=== PATIENT | male | born 1960 | race African-American/Black ===

== ENCOUNTER 2016-07-11 03:50 | Inpatient (IN) | payer MEDICARE ==
[2016-07-11] MEDS ORDERED: ALBUTEROL 0.083% 3 ML NEB NEB ONE ×3 (03:54→04:50)
[2016-07-11 04:04] LABS: ALLEN'S TEST PASS; BEb -2.8 (+/- 2); TCO2 25.6 MMOL/L (23-27)
[2016-07-11 04:05] LABS: ABG Draw Site Right Brachial
[2016-07-11] MEDS ORDERED: LORAZEPAM 2 MG/ML VIAL IV ONE (04:30)
[2016-07-11 04:33] LABS: AUTOMATED BASOPHIL 0.4 % (0-2); AUTOMATED EOSINOPHIL 0.4 % (0-5); AUTOMATED LYMPH 10.1 % (17-44); AUTOMATED MONOCYTE 6.8 % (3-10); AUTOMATED NEUTROPHIL 82.3 % (45-76); MPV 7.8 fL (7.4-10.4)
--- NOTE | 2016-07-11 04:40 | EDPRACDOC ---
- General Information Stated Complaint: RESPIRATORY DISTRESS Time Seen by Provider: 07/11/16 04:38 Information Source: Patient, Watermaster Mode Of Arrival: Ambulance Home Medications: Home Medications Warfarin Sodium [Coumadin] 5 mg PO DIR 07/11/16 Warfarin Sodium [Coumadin] 6 mg PO DIR 07/11/16 Allergies/Adverse Reactions: Allergies Allergy/AdvReac Type Severity Reaction Status Date / Time No Known Allergies Allergy Verified 07/11/16 04:46 - History of Present Illness Onset: today HPI: h/o COPD inc SOB tonight despite home medications. no F/C, no rash. no sick contacts. BIB EMS sats in the 70s, has IV Solumedrol and albuterol in route Shortness of Breath: Severe Relevant History: Reports: COPD Cough: Reports: Non-productive Ear Symptoms: Reports: None SOB Worsens with: Reports: Exertion SOB Improves with: Reports: Inhaler Recently treated infections:: Denies: URI Associated Signs and symptoms: Denies: Fever, Sore Throat ED Past Medical History - History Reviewed Yes Nurses notes reviewed and agree except as marked - Patient Medical History Cardiac History: Reports: Hypertension Respiratory History: Denies: Asthma, COPD Psychological History: Reports: Depression Systemic History: Reports: Cancer (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 Denies: Diabetes Surgical History: Reports: Tonsillectomy/Adnoidectomy - Family Medical History Reports: Hypertension (MOTHER), Cancer (SISTER). Denies: Diabetes, Stroke, Cardiac Disorders EDM Review of Systems - Review of Systems ROS Negative Except as Marked: Yes All systems reviewed and were negative except as marked - Physical Exam Constitutional: Alert (Awake), Other (resp distress) Oriented to: Time, Person, Place Last recorded Vital Signs: Last Vital Signs Temp Pulse Resp 17 07/11/16 03:58 BP Pulse Ox 96 07/11/16 03:58 Oxygen Pulse Oxygen Saturation 96 O2 Device Oxygen Flow Rate Fraction of Inspired Oxygen ( 30 FIO2) - HEENT Head: Normal ( normocephalic) Eye Exam: Normal (PERRL, EOMI, Sclera white) Oropharynx: Normal (Pharynx:Moist without exudate,Gums-no swelling) Nose: No Symptoms Reported (septum midline) Neck: Normal (FROM, trachea at midline) - Respiratory/Cardiovascular Respiratory: Diminished, Tachypnea Cardiovascular: Tachycardia - GI Auscultation: Normal (NABS) Palpation: Normal (Soft,No rebound or guarding, non distended) Tenderness: Non tender - Musculoskeletal Back: Normal (Non-Tender) Extremities: Normal (Normal tone, Pulses 2+ No cyanosis or edema, FROM) - Integumentary Skin: Normal, Warm, Dry Lymphatics: Normal (no adenopathy) - Neurologic Memory Impaired: Normal Motor Function: Normal (Normal tone, Pulses 2+ No cyanosis or edema, FROM) Cranial Nerve: Normal (CN II-X11 intact sensation, strength 5/5) Cerebellar: Normal Mood Description: Normal Perception: Normal ED SOB MDM - Differential Diagnosis Differential Diagnosis: Asthma, Pulmonary Embolus, Pnuemonia - Results Result Diagrams: 07/11/16 04:15 07/11/16 04:35 Results: WBC 10.2 xk/uL (3.8-10.8) 07/11/16 04:15 RBC 5.37 xM/uL (4.70-6.10) 07/11/16 04:15 Hgb 17.2 g/dL (14.0-18.0) 07/11/16 04:15 Hct 51.3 % (42-52) 07/11/16 04:15 MCV 96 fL (80-94) H 07/11/16 04:15 MCH 32.0 pg (27-32) 07/11/16 04:15 MCHC 33.4 g/dl (33-36) 07/11/16 04:15 RDW 14.8 % (11.5-14.5) H 07/11/16 04:15 Plt Count 143 xk/uL (130-400) 07/11/16 04:15 MPV 7.8 fL (7.4-10.4) 07/11/16 04:15 Neut % (Auto) 82.3 % (45-76) H 07/11/16 04:15 Lymph % (Auto) 10.1 % (17-44) L 07/11/16 04:15 [place] % (Auto) 6.8 % (3-10) 07/11/16 04:15 Eos % (Auto) 0.4 % (0-5) 07/11/16 04:15 Baso % (Auto) 0.4 % (0-2) 07/11/16 04:15 Absolute Neuts (auto) 8.36 xk/uL (1.7-8.2) H 07/11/16 04:15 Absolute Lymphs (auto) 1.02 xk/uL (0.65-4.75) 07/11/16 04:15 Puncture Site Right brachial 07/11/16 04:00 pH 7.300 pH UNITS (7.35-7.45) L 07/11/16 04:00 pCO2 49.0 mmHg (35-45) H 07/11/16 04:00 pO2 60.0 mmHg (80-100) L 07/11/16 04:00 HCO3 24.1 MMOL/L (22-26) 07/11/16 04:00 Total CO2 25.6 MMOL/L (23-27) 07/11/16 04:00 Base Excess -2.8 (+/- 2) L 07/11/16 04:00 FiO2 % 2l nc 07/11/16 04:00 Specimen Drawn By Nelson 07/11/16 04:00 Lab Results 07/11/16 07/11/16 04:15 04:00 WBC 10.2 RBC 5.37 Hgb 17.2 Hct 51.3 MCV 96 H MCH 32.0 MCHC 33.4 RDW 14.8 H Plt Count 143 MPV 7.8 Neut % (Auto) 82.3 H Lymph % (Auto) 10.1 L [place] % (Auto) 6.8 Eos % (Auto) 0.4 Baso % (Auto) 0.4 Absolute Neuts (auto) 8.36 H Absolute Lymphs (auto) 1.02 Puncture Site Right brachial pH 7.300 L pCO2 49.0 H pO2 60.0 L HCO3 24.1 Total CO2 25.6 Base Excess -2.8 L FiO2 % 2l nc Specimen Drawn By Nelson - EKG EKG #1 EKG Time: 03:56 -: Yes EKG interpreted by ca Rate: bpm: 103 [place]: Normal Rhythm: ST Block: None Hypertrophy: None ST: Nonsp Comments: old septal infarct, PVCs present - Diagnostic Imaging Chest Image interpreted by: Radiologist Diagnostic Imaging Comments: Exam(s): [id number] RAD/DG CHEST PORTABLE CLINICAL DATA: 56-year-old male with shortness of breath EXAM: PORTABLE CHEST 1 VIEW COMPARISON: Chest CT dated 05/08/2016 FINDINGS: There is severe emphysematous changes of the lungs. No focal consolidation or or pneumothorax. There is slight blunting of the costophrenic angles, likely related to flattening of the diaphragm. Trace pleural effusions is not excluded. Right pectoral Port-A-Cath with tip over central SVC. A gas containing structure at the right cardiophrenic angle corresponds to the air with gastric pull-through. The osseous structures are grossly unremarkable. IMPRESSION: No focal consolidation or pneumothorax. Electronically Signed By: Thomas Heaton M.D. On: 07/11/2016 04:49 - Departure Final Diagnosis: Acute exacerbation of chronic obstructive airways disease Decision to Admit Time: 05:49 Decision to admit date: 07/11/16 Decision to admit: from ED - Physician Consulted Hospitalist Time Called: 05:49 (Dr Stanton to admit)
--- NOTE | 2016-07-11 04:52 | DIRPT ---
CLINICAL DATA: 56-year-old male with shortness of breath EXAM: PORTABLE CHEST 1 VIEW COMPARISON: Chest CT dated 05/08/2016 FINDINGS: There is severe emphysematous changes of the lungs. No focal consolidation or or pneumothorax. There is slight blunting of the costophrenic angles, likely related to flattening of the diaphragm. Trace pleural effusions is not excluded. Right pectoral Port-A-Cath with tip over central SVC. A gas containing structure at the right cardiophrenic angle corresponds to the air with gastric pull-through. The osseous structures are grossly unremarkable. IMPRESSION: No focal consolidation or pneumothorax. Electronically Signed By: Thomas Heaton M.D. On: 07/11/2016 04:49
[2016-07-11 04:55] LABS: BLOOD UREA NITROGEN 10 MG/DL (9-20); CALCIUM 8.9 MG/DL (8.4-10.2); CALCULATED OSMOLALITY 264 MOs/Kg (270-290); CHLORIDE 99 mEq/L (98-107); GLUCOSE 125 MG/DL (70-99); SODIUM LEVEL 137 mEq/L (137-146)
[2016-07-11 05:51] LABS: PT-INR 1.5
[2016-07-11] MEDS ORDERED: Albuterol/Ipratropium Neb 3 ML NEB NEB PRN (06:06)
[2016-07-11] MEDS ORDERED: DEXTROSE 25 GM/50 ML PFS IV PRN (06:06)
[2016-07-11] MEDS ORDERED: GLUCOSE (ORAL GEL) 15 GM TUBE PO PRN (06:06)
[2016-07-11] MEDS ORDERED: GLUCAGON 1 MG VIAL SQ PRN (06:06)
[2016-07-11] MEDS ORDERED: FLEET 4.5 OZ ENEMA PR PRN (06:42)
[2016-07-11] MEDS ORDERED: BISACODYL 10 MG SUPP PR PRN (06:42)
[2016-07-11] MEDS ORDERED: PROMETHAZINE 25 MG/ML VIAL IV PRN (06:42)
[2016-07-11] MEDS ORDERED: GUAIFENESIN 200 MG/10 ML UDC PO PRN (06:42)
[2016-07-11] MEDS ORDERED: ONDANSETRON HCL 4 MG/2 ML VIAL IV PRN (06:42)
[2016-07-11] MEDS ORDERED: SIMETHICONE 80 MG TAB PO PRN (06:42)
[2016-07-11] MEDS ORDERED: BISACODYL 5 MG TAB PO PRN (06:42)
--- NOTE | 2016-07-11 06:46 | HISTPHYS ---
- Chief Complaint Shortness of breath - History of Present Illness 56 yoaam presented emergency room early on today for evaluation of progressive worsening difficulties breathing. Patient reports that about 10 days ago he has developed chest congestion and cough associated with the pleuritic chest pain it was seen by his PCP and received course of antibiotic. His symptoms have only minimally improved. Since finishing antibiotic he has developed progressive worsening dyspnea chest tightness wheezes and cough productive thick yellowish greenish phlegm denies any hemoptysis. Despite using his oxygen at higher flow patient did not sustain asymptomatic improvement and yesterday evening he has found himself gasping for air. His pulse ox was in the low 70s when EMS arrived.. Upon arrival in ED patient was found to be in severe respiratory distress hypoxic tachypneic tachycardic and hypertensive and required immediate ED staff attention and BiPAP therapy. He received IV steroids and nebulized bronchodilators, intubation was avoided. Medical consultation was phoned in for inpatient treatment. - Medical History Cardiac History: Reports: Hypertension, Valvular Heart Disease Respiratory History: Reports: COPD, Pneumonia, Emphysema, Pulmonary Embolism. Denies: Asthma GI/ History: Reports: Gastroesophageal Reflux, BPH Musculoskeletal History: Reports: Osteoarthritis Systemic History: Reports: Cancer (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 Denies: Diabetes Neurological History: Reports: No Significant History Psychological History: Reports: Depression - Surgical History Reports: Tonsillectomy/Adnoidectomy, Other (port) - Medictions/Allergies Allergies No Known Allergies Allergy (Verified 07/11/16 04:46) Current Medication List: Reviewed Home Medications Warfarin Sodium [Coumadin] 5 mg PO DIR 07/11/16 Warfarin Sodium [Coumadin] 6 mg PO DIR 07/11/16 - Family History Reports: Hypertension (MOTHER), Cancer (SISTER). Denies: Diabetes, Stroke, Cardiac Disorders - Social History Travel Outside of [place] in the Last 3 Months?: No Lives: With Family Smoking Status: Light tobacco smoker (less than 5/day) - Review of Systems Constitutional: Chills, Fever, Diaphoresis, Fatigue, Loss of Appetite, Weakness Eyes: No Symptoms Reported Ears: No Symptoms Reported Nose: No Symptoms Reported Mouth: No Symptoms Reported Throat/Neck: No Symptoms Reported Respiratory: Cough, Shortness of Breath, Wheezing, Sputum, Dyspnea Cardiovascular: Chest Pain Gastrointestinal: No Symptoms Reported, Nausea, Heartburn Genitourinary: Nocturia Neurological: Weakness Musculoskeletal:: Arthritis Integumentary: No Symptoms Reported Allergic/Immunologic: No Symptoms Reported Hematologic: No Symptoms Reported Endocrine: No Symptoms Reported Psychiatric: No Symptoms Reported - Physical Exam Vital Signs: Initial Vitals Temperature 98.4 F 07/11/16 03:50 Pulse Rate 102 07/11/16 03:50 Respiratory Rate 25 H 07/11/16 03:50 Blood Pressure 199/117 H 07/11/16 03:50 Pulse Oxygen Saturation 79 L 07/11/16 03:50 Constitutional: Distress, Restless, Other (Acutely ill and toxic-appearing visibly short of breath with audible wheezes and rhonchi . Unable to speak full sentences) Oriented to: Time, Person, Place - HEENT Head: Normal Eye: Normal Oropharynx: Normal ENT EAC: Normal TMJ: Normal Nose: No Symptoms Reported Respiratory: Accessory Muscle Use, Diminished, Retractions, Rhonchi, Tachypnea, Wheezes Cardiovascular: Normal, Tachycardia - GI Auscultation: Normal Palpation: Normal Tenderness: Non tender Rectal Exam: Deferred - Exam Deferred: Yes - Musculoskeletal Back: Normal Extremities: Normal Spine: limited range of motion - Integumentary Skin: Normal, Warm, Dry Lymphatics: Normal - Neurologic Memory Impaired: Normal Motor Function: Normal Cranial Nerve: Normal Cerebellar: Normal Mood Description: Normal, Anxious Thought: Coherent Perception: Normal - Focused CV Perfusion Exam Vital Signs: Last Vital Signs Temp 98.4 F 07/11/16 03:50 Pulse 120 H 07/11/16 05:15 Resp 29 H 07/11/16 05:15 BP 170/92 07/11/16 05:15 Pulse Ox 95 07/11/16 04:30 - Diagnostic Findings Allergies No Known Allergies Allergy (Verified 07/11/16 04:46) Initial Vitals Temperature 98.4 F 07/11/16 03:50 Pulse Rate 102 07/11/16 03:50 Respiratory Rate 25 H 07/11/16 03:50 Blood Pressure 199/117 H 07/11/16 03:50 Pulse Oxygen Saturation 79 L 07/11/16 03:50 07/11/16 04:15 07/11/16 04:35 Abnormal Lab Results 07/11/16 07/11/16 07/11/16 04:00 04:15 04:18 MCV 96 H RDW 14.8 H Neut % (Auto) 82.3 H Lymph % (Auto) 10.1 L Absolute Neuts (auto) 8.36 H PT 15.8 H pH 7.300 L pCO2 49.0 H pO2 60.0 L Base Excess -2.8 L Anion Gap Glucose Calculated Osmolality 07/11/16 04:35 MCV RDW Neut % (Auto) Lymph % (Auto) Absolute Neuts (auto) PT pH pCO2 pO2 Base Excess Anion Gap 18 H Glucose 125 H Calculated Osmolality 264 L Last Vital Signs Temp 98.4 F 07/11/16 03:50 Pulse 120 H 07/11/16 05:15 Resp 29 H 07/11/16 05:15 BP 170/92 07/11/16 05:15 Pulse Ox 95 07/11/16 04:30 Patient Name: WINNIE GUERRA JR LOC: ED : 1960 AGE: 56 Order Date:07/11/16 Date of Service:04/17 Report # [id number] Ord Physician: Bryon Carmen MD Exam # [id number] Emergency Physician: Bryon Carmen MD Exam(s): [id number] RAD/DG CHEST PORTABLE CLINICAL DATA: 56-year-old male with shortness of breath EXAM: PORTABLE CHEST 1 VIEW COMPARISON: Chest CT dated 05/08/2016 FINDINGS: There is severe emphysematous changes of the lungs. No focal consolidation or or pneumothorax. There is slight blunting of the costophrenic angles, likely related to flattening of the diaphragm. Trace pleural effusions is not excluded. Right pectoral Port-A-Cath with tip over central SVC. A gas containing structure at the right cardiophrenic angle corresponds to the air with gastric pull-through. The osseous structures are grossly unremarkable. IMPRESSION: No focal consolidation or pneumothorax. Electronically Signed By: Thomas Heaton M.D. On: 07/11/2016 04:49 EKG: sinus tach, pvcs - Assessment (1) Acute respiratory failure with hypoxia J96.01 - ACUTE RESPIRATORY FAILURE WITH HYPOXIA Acute Present on Admission: Yes Patient will be admitted to step-down unit. Supplemental O2 will be provided will keep his sats greater than 90%. Monitor pulmonary status closely PA lateral chest x-ray and ABG will be obtained the morning. (2) Acute exacerbation of chronic obstructive airways disease J44.1 - CHRONIC OBSTRUCTIVE PULMONARY DISEASE W (ACUTE) EXACERBATION Acute Present on Admission: Yes Continue nebulized bronchodilators continue IV steroids. Continue mucolytics and aggressive pulmonary toileting. (3) Accelerated hypertension I10 - ESSENTIAL (PRIMARY) HYPERTENSION Acute Present on Admission: Yes Adjust meds to keep SBP less than 140. (4) Pulmonary embolism I26.99 - OTHER PULMONARY EMBOLISM WITHOUT ACUTE COR PULMONALE Chronic Present on Admission: Yes Qualifiers: Pulmonary embolism type: other Chronicity: chronic Acute cor pulmonale presence: without acute cor pulmonale Qualified Code(s): I27.82 - Chronic pulmonary embolism Continue Coumadin for INR between 2 and 3 (5) GERD (gastroesophageal reflux disease) K21.9 - GASTRO-ESOPHAGEAL REFLUX DISEASE WITHOUT ESOPHAGITIS Chronic Present on Admission: Yes Qualifiers: Esophagitis presence: without esophagitis Qualified Code(s): K21.9 - Gastro -esophageal reflux disease without esophagitis continue ppi (6) H/O malignant neoplasm of esophagus Z85.01 - PERSONAL HISTORY OF MALIGNANT NEOPLASM OF ESOPHAGUS Chronic Present on Admission: Yes Status post treatment. Port in place. Follow by Heme-Onc. (7) Dehydration E86.0 - DEHYDRATION Acute Present on Admission: Yes Continue IV fluids. Case Care Discussed with: Patient, Nursing Staff, Respiratory Therapy Total Time: 65 min . Critical Care: Yes Code: 291
[2016-07-11] MEDS ORDERED: WARFARIN EDUCATION DOCUMENTATION ONE (07:00)
[2016-07-11] MEDS: NS 1,000 ML IV SCH ×2 (09:04→21:26)
[2016-07-11] MEDS: CEFTRIAXONE 1 GM in D5W 100 ML IV SCH (09:05)
[2016-07-11] MEDS: GUAIFENESIN 600 MG LA TAB PO SCH ×2 (09:12→21:26)
[2016-07-11] MEDS: METHYLPREDNISOLONE 125 MG/2 ML VIAL IV SCH ×3 (09:12→21:26)
[2016-07-11] MEDS: LISINOPRIL 20 MG TAB PO SCH (09:13)
[2016-07-11] MEDS: AZITHROMYCIN 500 MG in D5W 250 ML IV SCH (09:14)
[2016-07-11] MEDS: Albuterol/Ipratropium Neb 3 ML NEB NEB SCH ×3 (09:29→20:47)
[2016-07-11] MEDS: BUDESONIDE 0.5 MG NEB NEB SCH ×2 (09:29→20:50)
[2016-07-11] MEDS: hydrALAZINE 20 MG/ML VIAL IV PRN (10:30)
[2016-07-11] MEDS: LORAZEPAM 1 MG TAB PO PRN ×3 (11:03→21:26)
[2016-07-11] MEDS: REGULAR INSULIN 100 UNITS/ML - 3 ML VIAL SQ SCH ×3 (13:38→23:41)
[2016-07-11] MEDS: ENOXAPARIN 80 MG/0.8 ML PFS SQ SCH ×2 (13:39→23:41)
[2016-07-11] MEDS ORDERED: ACETAMINOPHEN 325 MG/TAB TABLET PO PRN (16:08)
[2016-07-11] MEDS: This patient is receiving warfarin therapy SCH (18:37)
[2016-07-11] MEDS: WARFARIN 6 MG TAB PO SCH (19:16)
[2016-07-12] MEDS: Albuterol/Ipratropium Neb 3 ML NEB NEB SCH ×4 (02:15→20:00)
[2016-07-12] MEDS: METHYLPREDNISOLONE 125 MG/2 ML VIAL IV SCH ×4 (03:02→19:45)
[2016-07-12 05:27] LABS: AUTOMATED BASOPHIL 0.2 % (0-2); AUTOMATED EOSINOPHIL 0.1 % (0-5); AUTOMATED LYMPH 7.3 % (17-44); AUTOMATED MONOCYTE 4.8 % (3-10); AUTOMATED NEUTROPHIL 87.6 % (45-76); MPV 8.1 fL (7.4-10.4)
[2016-07-12 05:30] LABS: ALLEN'S TEST PASS; BEb 0.3 (+/- 2); TCO2 25.8 MMOL/L (23-27)
[2016-07-12 05:31] LABS: ABG Draw Site Left Radial
[2016-07-12 05:33] LABS: PT-INR 2.2
[2016-07-12 05:39] LABS: BLOOD UREA NITROGEN 16 MG/DL (9-20); CALCIUM 9.3 MG/DL (8.4-10.2); CALCULATED OSMOLALITY 268 MOs/Kg (270-290); CHLORIDE 99 mEq/L (98-107); GLUCOSE 150 MG/DL (70-99); SODIUM LEVEL 137 mEq/L (137-146)
[2016-07-12] MEDS: NS 1,000 ML IV SCH ×2 (06:21→17:43)
[2016-07-12] MEDS: REGULAR INSULIN 100 UNITS/ML - 3 ML VIAL SQ SCH ×4 (06:22→23:40)
[2016-07-12] MEDS: PANTOPRAZOLE 40 MG TAB PO SCH (06:22)
[2016-07-12] MEDS: CEFTRIAXONE 1 GM in D5W 100 ML IV SCH (07:34)
[2016-07-12] MEDS: GUAIFENESIN 600 MG LA TAB PO SCH ×2 (07:35→19:46)
[2016-07-12] MEDS: LISINOPRIL 20 MG TAB PO SCH (07:35)
--- NOTE | 2016-07-12 08:17 | DIRPT ---
CLINICAL DATA: Respiratory failure. Shortness of breath EXAM: CHEST 2 VIEW COMPARISON: 07/11/2016 FINDINGS: Right chest wall port a catheter noted with tip in the projection of the SVC. Heart size is normal. Postoperative change from previous esophagectomy and gastric pull through. Fluid level is identified within the intra thoracic stomach. The lungs are hyperexpanded. There are coarsened interstitial markings throughout both lungs compatible with emphysema. No superimposed airspace consolidation. IMPRESSION: 1. No acute cardiopulmonary abnormalities. 2. COPD/emphysema Electronically Signed By: Miroslava Samayoa M.D. On: 07/12/2016 08:15
[2016-07-12] MEDS: BUDESONIDE 0.5 MG NEB NEB SCH ×2 (09:31→20:00)
[2016-07-12] MEDS: AZITHROMYCIN 500 MG in D5W 250 ML IV SCH (09:49)
--- NOTE | 2016-07-12 10:07 | GENMEDPROG ---
Chief Complaint: Pneumonia, COPD Subjective Note: Resting comfortably this morning on 2 L nasal cannula. Currently getting a breathing treatment. Tells me that he feels overall improved, but with any exertion he gets very short of breath. No productive sputum anymore. DVT Prophylaxis: Yes - Physical Examination Vital Signs and I&O: Last Vital Signs Temp 97.8 F 07/12/16 05:36 Pulse 116 07/12/16 10:00 Resp 18 07/12/16 07:17 BP 128/81 07/12/16 07:17 Pulse Ox 93 07/12/16 09:32 Oxygen Pulse Oxygen Saturation 93 O2 Device Nasal Cannula Oxygen Flow Rate 2 Fraction of Inspired Oxygen ( FIO2) Intake & Output 07/10/16 07/11/16 07/12/16 07/13/16 06:59 06:59 06:59 06:59 Intake Total 0 1065 Output Total 1405 Balance 0 -340 Patient's weight 75.466 kg General: Alert, Oriented x3, Cooperative, Mild distress HEENT: EOMI (Sclera white) Neck: Normal Trachea alignment, Normal inspection Lymphatics: Normal Respiratory: Accessory Muscle Use, Diminished, Retractions, Rhonchi, Tachypnea, Wheezes Cardiovascular: Regular rate, No Gallops,Rubs/Murmurs GI: Normal bowel sounds, Soft, Non tender (non distended) Extremities/Musculoskeletal: Other (Normal Tone). negative: Edema, Cyanosis Skin: No rashes, No significant lesion Lab/DI/Studies Reviewed: Laboratory Tests 07/12/16 07/12/16 07/12/16 04:15 04:15 04:15 Hgb 17.4 Hct 52.3 H INR 2.2 pH pCO2 pO2 Potassium 4.5 BUN 16 Creatinine 0.80 07/12/16 05:28 Hgb Hct INR pH 7.420 pCO2 38.0 pO2 60.0 L Potassium BUN Creatinine - Assessment (1) Accelerated hypertension Acute I10 - ESSENTIAL (PRIMARY) HYPERTENSION Comment/Plan: Adjust meds to keep SBP less than 140. (2) Acute exacerbation of chronic obstructive airways disease Acute J44.1 - CHRONIC OBSTRUCTIVE PULMONARY DISEASE W (ACUTE) EXACERBATION Comment/Plan: Continue nebulized bronchodilators continue IV steroids, still wheezing but will wean steroids down slightly today. Continue mucolytics and aggressive pulmonary toileting. (3) Acute respiratory failure with hypoxia Acute J96.01 - ACUTE RESPIRATORY FAILURE WITH HYPOXIA Comment/Plan: Patient will be admitted to step-down unit. Supplemental O2 will be provided will keep his sats greater than 90%. Monitor pulmonary status closely PA lateral chest x- ray and ABG will be obtained the morning. (4) GERD (gastroesophageal reflux disease) Chronic K21.9 - GASTRO-ESOPHAGEAL REFLUX DISEASE WITHOUT ESOPHAGITIS Qualifiers: Esophagitis presence: without esophagitis Qualified Code(s): K21.9 - Gastro -esophageal reflux disease without esophagitis Comment/Plan: continue ppi (5) H/O malignant neoplasm of esophagus Chronic Z85.01 - PERSONAL HISTORY OF MALIGNANT NEOPLASM OF ESOPHAGUS Comment /Plan: Status post treatment. Port in place. Follow by Heme-Onc. (6) Pulmonary embolism Chronic I26.99 - OTHER PULMONARY EMBOLISM WITHOUT ACUTE COR PULMONALE Qualifiers: Pulmonary embolism type: other Chronicity: chronic Acute cor pulmonale presence: without acute cor pulmonale Qualified Code(s): I27.82 - Chronic pulmonary embolism Comment/Plan: Continue Coumadin for INR between 2 and 3, Lovenox was initiated yesterday due to his chronic PE. Can be discontinued today as INR is in therapeutic range. Case Care Discussed with: Patient, Nursing Staff Total Time: 35
[2016-07-12] MEDS ORDERED: Vaccine Screening Complete SCH (13:00)
[2016-07-12] MEDS: This patient is receiving warfarin therapy SCH (16:10)
[2016-07-12] MEDS: [UNRECOGNIZED DRUG - OTHER] PO SCH (16:46)
[2016-07-12] MEDS: WARFARIN 6 MG TAB PO SCH (17:39)
[2016-07-12] MEDS: LORAZEPAM 1 MG TAB PO PRN (23:29)
[2016-07-13] MEDS: Albuterol/Ipratropium Neb 3 ML NEB NEB SCH ×4 (02:20→20:52)
[2016-07-13] MEDS: METHYLPREDNISOLONE 125 MG/2 ML VIAL IV SCH ×4 (03:17→20:12)
[2016-07-13] MEDS: NS 1,000 ML IV SCH ×4 (03:19→14:46)
[2016-07-13] MEDS: PANTOPRAZOLE 40 MG TAB PO SCH (05:02)
[2016-07-13 05:46] LABS: PT-INR 3.5
[2016-07-13] MEDS: REGULAR INSULIN 100 UNITS/ML - 3 ML VIAL SQ SCH ×3 (06:09→17:19)
[2016-07-13] MEDS: CEFTRIAXONE 1 GM in D5W 100 ML IV SCH (07:17)
[2016-07-13] MEDS: LISINOPRIL 20 MG TAB PO SCH (07:17)
[2016-07-13] MEDS: GUAIFENESIN 600 MG LA TAB PO SCH ×2 (07:17→20:12)
[2016-07-13] MEDS: BUDESONIDE 0.5 MG NEB NEB SCH ×2 (07:59→20:53)
[2016-07-13] MEDS: AZITHROMYCIN 500 MG in D5W 250 ML IV SCH (08:13)
--- NOTE | 2016-07-13 08:30 | GENMEDPROG ---
Chief Complaint: PNEUMONIA, COPD EXAC, MALIG HTN, HX ESOPH CA, PE (OLD), GERD DVT Prophylaxis: Yes - Physical Examination Vital Signs and I&O: Last Vital Signs Temp 98.1 F 07/13/16 08:03 Pulse 101 07/13/16 08:03 Resp 18 07/13/16 08:03 BP 141/99 07/13/16 08:03 Pulse Ox 99 07/13/16 08:03 Oxygen Pulse Oxygen Saturation 99 O2 Device Nasal Cannula Oxygen Flow Rate 2 Fraction of Inspired Oxygen ( FIO2) Intake & Output 07/10/16 07/11/16 07/12/16 07/13/16 23:59 23:59 23:59 23:59 Intake Total 0 3203 1368 Output Total 905 3230 250 Balance -905 -27 1118 Patient's weight 75.466 kg 75.466 kg 76.26 kg General: Alert, Oriented x3, Cooperative, Mild distress HEENT: PERRLA, EOMI (Sclera white), Mucous membr. moist/pink Neck: Normal Trachea alignment, Normal inspection Lymphatics: Normal Respiratory: Accessory Muscle Use, Diminished, Retractions, Rhonchi, Tachypnea, Wheezes Cardiovascular: Regular rate, No Gallops,Rubs/Murmurs GI: Normal bowel sounds, Soft, Non tender (non distended) Extremities/Musculoskeletal: Normal pulses, DJD, Other (Normal Tone). negative : Edema, Cyanosis Skin: No rashes, No significant lesion Neurological: Normal speech, Strength at 5/5 X4 ext, Normal tone Psych/Mental Status: Appropriate, Normal Affect, Cooperative - Assessment (1) Acute respiratory failure with hypoxia Acute J96.01 - ACUTE RESPIRATORY FAILURE WITH HYPOXIA Comment/Plan: Patient will be admitted to step-down unit. Supplemental O2 will be provided will keep his sats greater than 90%. Monitor pulmonary status closely PA lateral chest x- ray and ABG will be obtained the morning. (2) Pneumonia Acute J18.9 - PNEUMONIA, UNSPECIFIED ORGANISM Qualifiers: Pneumonia type: due to unspecified organism Laterality: left Lung location: upper lobe of lung Qualified Code(s): J18.1 - Lobar pneumonia, unspecified organism Comment/Plan: continue current antibiotics: Rocephin & Zithromax (3) Acute exacerbation of chronic obstructive airways disease Acute J44.1 - CHRONIC OBSTRUCTIVE PULMONARY DISEASE W (ACUTE) EXACERBATION Comment/Plan: Continue nebulized bronchodilators continue IV steroids, still wheezing but will wean steroids down slightly today. Continue mucolytics and aggressive pulmonary toileting. (4) HTN (hypertension) Acute I10 - ESSENTIAL (PRIMARY) HYPERTENSION Qualifiers: Hypertension type: essential hypertension Qualified Code(s): I10 - Essential (primary) hypertension (5) GERD (gastroesophageal reflux disease) Chronic K21.9 - GASTRO-ESOPHAGEAL REFLUX DISEASE WITHOUT ESOPHAGITIS Qualifiers: Esophagitis presence: without esophagitis Qualified Code(s): K21.9 - Gastro -esophageal reflux disease without esophagitis Comment/Plan: continue PPI (6) H/O malignant neoplasm of esophagus Chronic Z85.01 - PERSONAL HISTORY OF MALIGNANT NEOPLASM OF ESOPHAGUS Comment /Plan: Status post treatment. Port in place. Followed by Heme-Onc. (7) Dehydration Resolved E86.0 - DEHYDRATION Comment/Plan: Continue IV fluids.
[2016-07-13] MEDS ORDERED: Medication Special Instructions SCH (14:00)
[2016-07-13] MEDS: [UNRECOGNIZED DRUG - OTHER] PO SCH (14:46)
[2016-07-13] MEDS: This patient is receiving warfarin therapy SCH (16:26)
[2016-07-13] MEDS: hydrALAZINE 20 MG/ML VIAL IV PRN (20:16)
[2016-07-13] MEDS: LORAZEPAM 1 MG TAB PO PRN (20:58)
[2016-07-14] MEDS: NS 1,000 ML IV SCH ×4 (01:05→21:40)
[2016-07-14] MEDS: REGULAR INSULIN 100 UNITS/ML - 3 ML VIAL SQ SCH ×4 (01:32→17:10)
[2016-07-14] MEDS: METHYLPREDNISOLONE 125 MG/2 ML VIAL IV SCH ×4 (02:09→20:37)
[2016-07-14] MEDS: Albuterol/Ipratropium Neb 3 ML NEB NEB SCH ×4 (02:18→20:13)
[2016-07-14 05:05] LABS: PT-INR 4.1
[2016-07-14] MEDS: PANTOPRAZOLE 40 MG TAB PO SCH (06:05)
[2016-07-14] MEDS: CEFTRIAXONE 1 GM in D5W 100 ML IV SCH (08:04)
[2016-07-14] MEDS: GUAIFENESIN 600 MG LA TAB PO SCH ×2 (08:04→20:37)
[2016-07-14] MEDS: LISINOPRIL 20 MG TAB PO SCH (08:04)
[2016-07-14] MEDS: BUDESONIDE 0.5 MG NEB NEB SCH ×2 (08:22→20:14)
[2016-07-14] MEDS: AZITHROMYCIN 250 MG TAB PO SCH (08:46)
[2016-07-14] MEDS: This patient is receiving warfarin therapy SCH (11:50)
[2016-07-14] MEDS: WARFARIN 6 MG TAB PO SCH ×2 (11:50→11:52)
[2016-07-14] MEDS: [UNRECOGNIZED DRUG - OTHER] PO SCH (14:03)
--- NOTE | 2016-07-14 16:17 | GENMEDPROG ---
Chief Complaint: resp failure, COPD, pneumonia, HTN, Subjective Note: Pleasant AA man still reports DEL CATSILLO Currently: Reports: DEL CASTILLO, SOB. Denies: Wheezing DVT Prophylaxis: Yes - Physical Examination Vital Signs and I&O: Last Vital Signs Temp 98.0 F 07/14/16 11:25 Pulse 96 07/14/16 14:00 Resp 18 07/14/16 11:25 BP 129/84 07/14/16 11:25 Pulse Ox 100 07/14/16 11:25 Oxygen Pulse Oxygen Saturation 100 O2 Device Nasal Cannula Oxygen Flow Rate 2 Fraction of Inspired Oxygen ( 40 FIO2) Intake & Output 07/11/16 07/12/16 07/13/16 07/14/16 23:59 23:59 23:59 23:59 Intake Total 0 3203 3259 1733 Output Total 905 3230 1900 900 Balance -905 -27 1359 833 Patient's weight 75.466 kg 75.466 kg 76.26 kg 76.839 kg General: Alert, Oriented x3, Cooperative, Mild distress, Weakness, Fatigue HEENT: PERRLA, EOMI (Sclera white), Mucous membr. moist/pink Neck: Normal Trachea alignment, Normal inspection Lymphatics: Normal Respiratory: Accessory Muscle Use, Diminished, Retractions, Rhonchi, Tachypnea, Wheezes Cardiovascular: Regular rate, No Gallops,Rubs/Murmurs GI: Normal bowel sounds, Soft, Non tender (non distended) Extremities/Musculoskeletal: Other (Normal Tone). negative: Edema, Cyanosis Skin: No rashes, No significant lesion Neurological: Normal speech, Strength at 5/5 X4 ext, Normal tone, Cranial nerves 3-12 NL Psych/Mental Status: Appropriate, Normal Affect, Cooperative - Assessment (1) Acute respiratory failure with hypoxia Acute J96.01 - ACUTE RESPIRATORY FAILURE WITH HYPOXIA Comment/Plan: Patient will be admitted to step-down unit. Supplemental O2 will be provided will keep his sats greater than 90%. Monitor pulmonary status closely, Repeat chest x- ray and ABG will be obtained in the morning. (2) Pneumonia Acute J18.9 - PNEUMONIA, UNSPECIFIED ORGANISM Qualifiers: Pneumonia type: due to unspecified organism Laterality: left Lung location: upper lobe of lung Qualified Code(s): J18.1 - Lobar pneumonia, unspecified organism Comment/Plan: continue current antibiotics: Rocephin, will stop Zithromax after today's dose (3) Warfarin-induced coagulopathy Acute T45.511A - POISONING BY ANTICOAGULANTS, ACCIDENTAL, INIT; D68.9 - COAGULATION DEFECT, UNSPECIFIED Comment/Plan: hold warfarin, give Vit K. Follow INR daily (4) Acute exacerbation of chronic obstructive airways disease Acute J44.1 - CHRONIC OBSTRUCTIVE PULMONARY DISEASE W (ACUTE) EXACERBATION Comment/Plan: Continue nebulized bronchodilators continue IV steroids, still wheezing but will wean steroids down slightly today. Continue mucolytics and aggressive pulmonary toileting. (5) HTN (hypertension) Acute I10 - ESSENTIAL (PRIMARY) HYPERTENSION Qualifiers: Hypertension type: essential hypertension Qualified Code(s): I10 - Essential (primary) hypertension (6) GERD (gastroesophageal reflux disease) Chronic K21.9 - GASTRO-ESOPHAGEAL REFLUX DISEASE WITHOUT ESOPHAGITIS Qualifiers: Esophagitis presence: without esophagitis Qualified Code(s): K21.9 - Gastro -esophageal reflux disease without esophagitis Comment/Plan: continue PPI (7) H/O malignant neoplasm of esophagus Chronic Z85.01 - PERSONAL HISTORY OF MALIGNANT NEOPLASM OF ESOPHAGUS Comment /Plan: Status post treatment. Port in place. Followed by Heme-Onc. Case Care Discussed with: Patient, Family, Nursing Staff Education/Counseling Given To: Patient, Family Member Education/Counseling Given Regarding: Diagnosis, Treatment, Prognosis Total Time: 50 min Critical Care: No Couseling Time (>50% in counseling/coordination): Yes Code: 39509 (12+)
--- NOTE | 2016-07-14 17:28 | CAPUEKG ---
[place], [place] Test Date: 2016-07-13 Pat Name: WINNIE GUERRA Department: Room: 435 Gender: Male Open Cut Examiner: MACY : Requested By: Order Number: Reading MD: Stuart Starks MD Measurements Intervals [place] Rate: 128 P: 91 AK: 124 QRS: 75 QRSD: 82 T: 25 QT: 312 QTc: 455 Interpretive Statements Sinus tachycardia Otherwise normal ECG Electronically Signed On 07-14-16 17:27:54 EST by Stuart Starks MD <[id number] [id number]
[2016-07-14] MEDS ORDERED: PHYTONADIONE 5 MG TAB PO STA (17:39)
[2016-07-14] MEDS: LORAZEPAM 1 MG TAB PO PRN (20:36)
[2016-07-14] MEDS: TEMAZEPAM 15 MG CAP PO PRN (20:36)
[2016-07-15] MEDS: REGULAR INSULIN 100 UNITS/ML - 3 ML VIAL SQ SCH ×4 (00:18→17:39)
[2016-07-15] MEDS: METHYLPREDNISOLONE 125 MG/2 ML VIAL IV SCH ×3 (01:08→15:00)
[2016-07-15] MEDS: Albuterol/Ipratropium Neb 3 ML NEB NEB SCH ×4 (01:30→19:44)
[2016-07-15 05:33] LABS: MPV 7.6 fL (7.4-10.4)
[2016-07-15 05:44] LABS: PT-INR 2.5
[2016-07-15] MEDS: BUDESONIDE 0.5 MG NEB NEB SCH ×2 (07:41→19:45)
[2016-07-15] MEDS: NS 1,000 ML IV SCH ×2 (08:12→16:50)
[2016-07-15] MEDS: CEFTRIAXONE 1 GM in D5W 100 ML IV SCH (08:14)
[2016-07-15] MEDS: PANTOPRAZOLE 40 MG TAB PO SCH (08:15)
[2016-07-15] MEDS: AZITHROMYCIN 250 MG TAB PO SCH (08:15)
[2016-07-15] MEDS: LISINOPRIL 20 MG TAB PO SCH (08:15)
[2016-07-15] MEDS: GUAIFENESIN 600 MG LA TAB PO SCH ×2 (08:15→20:57)
--- NOTE | 2016-07-15 10:06 | GENMEDPROG ---
Chief Complaint: resp insuffic, COPD, HTN, Pneumonia Currently: Reports: DEL CASTILLO, SOB. Denies: Wheezing DVT Prophylaxis: Yes - Physical Examination Vital Signs and I&O: Last Vital Signs Temp 97.6 F 07/15/16 08:20 Pulse 89 07/15/16 08:20 Resp 18 07/15/16 08:20 BP 174/92 07/15/16 08:20 Pulse Ox 94 07/15/16 08:20 Oxygen Pulse Oxygen Saturation 94 O2 Device Nasal Cannula Oxygen Flow Rate 2 Fraction of Inspired Oxygen ( 40 FIO2) Intake & Output 07/12/16 07/13/16 07/14/16 07/15/16 23:59 23:59 23:59 23:59 Intake Total 3203 3259 3587 916 Output Total 3230 1900 2200 400 Balance -27 1359 1387 516 Patient's weight 75.466 kg 76.26 kg 76.839 kg 77.111 kg General: Alert, Oriented x3, Cooperative, Mild distress, Weakness, Fatigue HEENT: PERRLA, EOMI (Sclera white), Mucous membr. moist/pink Neck: Normal Trachea alignment, Normal inspection Lymphatics: Normal Respiratory: Diminished, Wheezes (moving air better, less wheezing) Cardiovascular: Regular rate, No Gallops,Rubs/Murmurs GI: Normal bowel sounds, Soft, Non tender (non distended) Extremities/Musculoskeletal: Other (Normal Tone). negative: Edema, Cyanosis Skin: No rashes, No significant lesion Neurological: Normal speech, Strength at 5/5 X4 ext, Normal tone, Cranial nerves 3-12 NL Psych/Mental Status: Appropriate, Normal Affect, Cooperative - Assessment (1) Acute respiratory failure with hypoxia Acute J96.01 - ACUTE RESPIRATORY FAILURE WITH HYPOXIA Comment/Plan: continue O2 keep his sats greater than 90%. Monitor pulmonary status closely (2) Pneumonia Acute J18.9 - PNEUMONIA, UNSPECIFIED ORGANISM Qualifiers: Pneumonia type: due to unspecified organism Laterality: left Lung location: upper lobe of lung Qualified Code(s): J18.1 - Lobar pneumonia, unspecified organism Comment/Plan: continue current antibiotics: Rocephin, will stop Zithromax after today's dose (3) Warfarin-induced coagulopathy Acute T45.511A - POISONING BY ANTICOAGULANTS, ACCIDENTAL, INIT; D68.9 - COAGULATION DEFECT, UNSPECIFIED Comment/Plan: hold warfarin, give Vit K. Follow INR daily (4) Acute exacerbation of chronic obstructive airways disease Acute J44.1 - CHRONIC OBSTRUCTIVE PULMONARY DISEASE W (ACUTE) EXACERBATION Comment/Plan: Continue nebulized bronchodilators continue IV steroids, still wheezing but moving air better. Will wean steroids down today. Continue mucolytics and aggressive pulmonary toileting. (5) HTN (hypertension) Acute I10 - ESSENTIAL (PRIMARY) HYPERTENSION Qualifiers: Hypertension type: essential hypertension Qualified Code(s): I10 - Essential (primary) hypertension (6) GERD (gastroesophageal reflux disease) Chronic K21.9 - GASTRO-ESOPHAGEAL REFLUX DISEASE WITHOUT ESOPHAGITIS Qualifiers: Esophagitis presence: without esophagitis Qualified Code(s): K21.9 - Gastro -esophageal reflux disease without esophagitis Comment/Plan: continue PPI (7) H/O malignant neoplasm of esophagus Chronic Z85.01 - PERSONAL HISTORY OF MALIGNANT NEOPLASM OF ESOPHAGUS Comment /Plan: Status post treatment. Port in place. Followed by Heme-Onc.
[2016-07-15] MEDS: [UNRECOGNIZED DRUG - OTHER] PO SCH (15:51)
[2016-07-15] MEDS: WARFARIN 6 MG TAB PO SCH (16:48)
[2016-07-15] MEDS: This patient is receiving warfarin therapy SCH (16:49)
[2016-07-15] MEDS: hydrALAZINE 20 MG/ML VIAL IV PRN (20:57)
[2016-07-15] MEDS: METHYLPREDNISOLONE 40 MG/1 ML VIAL IV SCH (20:57)
[2016-07-15] MEDS: TEMAZEPAM 15 MG CAP PO PRN (20:57)
[2016-07-16] MEDS: REGULAR INSULIN 100 UNITS/ML - 3 ML VIAL SQ SCH ×5 (00:39→23:32)
[2016-07-16] MEDS: Albuterol/Ipratropium Neb 3 ML NEB NEB SCH ×4 (01:22→20:19)
[2016-07-16 03:22] LABS: PT-INR 1.5
[2016-07-16] MEDS: NS 1,000 ML IV SCH ×3 (04:51→16:13)
[2016-07-16] MEDS: PANTOPRAZOLE 40 MG TAB PO SCH (04:53)
[2016-07-16] MEDS: METHYLPREDNISOLONE 40 MG/1 ML VIAL IV SCH ×3 (04:53→19:43)
[2016-07-16] MEDS: BUDESONIDE 0.5 MG NEB NEB SCH ×2 (07:56→20:22)
[2016-07-16] MEDS: GUAIFENESIN 600 MG LA TAB PO SCH ×2 (09:58→19:44)
[2016-07-16] MEDS: CEFTRIAXONE 1 GM in D5W 100 ML IV SCH (09:58)
[2016-07-16] MEDS: LISINOPRIL 20 MG TAB PO SCH (09:59)
[2016-07-16] MEDS: WARFARIN 6 MG TAB PO SCH (16:14)
[2016-07-16] MEDS: This patient is receiving warfarin therapy SCH (16:14)
[2016-07-16] MEDS: [UNRECOGNIZED DRUG - OTHER] PO SCH (16:17)
--- NOTE | 2016-07-16 20:20 | GENMEDPROG ---
Chief Complaint: acute resp failure, COPD exac, pneumonia, HTN Subjective Note: Patient is feeling better, tolerating lower dose of steroids Currently: Reports: DEL CASTILLO, SOB. Denies: Wheezing DVT Prophylaxis: Yes - Physical Examination Vital Signs and I&O: Last Vital Signs Temp 99.1 F 07/16/16 16:55 Pulse 104 07/16/16 17:34 Resp 20 07/16/16 16:55 BP 165/89 07/16/16 16:55 Pulse Ox 92 07/16/16 16:55 Oxygen Pulse Oxygen Saturation 92 O2 Device Nasal Cannula Oxygen Flow Rate 2 Fraction of Inspired Oxygen ( 40 FIO2) Intake & Output 07/13/16 07/14/16 07/15/16 07/16/16 23:59 23:59 23:59 23:59 Intake Total 3259 3587 3108 3375 Output Total 1900 2200 1600 2375 Balance 1359 1387 1508 1000 Patient's weight 76.26 kg 76.839 kg 77.111 kg 78.131 kg General: Alert, Oriented x3, Cooperative, Mild distress, Weakness, Fatigue HEENT: PERRLA, EOMI (Sclera white), Mucous membr. moist/pink Neck: Normal Trachea alignment, Normal inspection Lymphatics: Normal Respiratory: Diminished, Wheezes (moving air better, less wheezing) Cardiovascular: Regular rate, No Gallops,Rubs/Murmurs GI: Normal bowel sounds, Soft, Non tender (non distended) Extremities/Musculoskeletal: Other (Normal Tone). negative: Edema, Cyanosis Skin: No rashes, No significant lesion Neurological: Normal speech, Strength at 5/5 X4 ext, Normal tone, Cranial nerves 3-12 NL Psych/Mental Status: Appropriate, Normal Affect, Cooperative Lab/DI/Studies Reviewed: Laboratory Tests 07/14/16 07/14/16 07/16/16 00:47 03:45 02:45 PT 43.1 H 15.6 H INR 4.1 1.5 POC Capillary Glucose 119 H - Assessment (1) Acute respiratory failure with hypoxia Acute J96.01 - ACUTE RESPIRATORY FAILURE WITH HYPOXIA Comment/Plan: continue 2L O2 [place]. keep his sats greater than 90%. Monitor pulmonary status closely (2) Pneumonia Acute J18.9 - PNEUMONIA, UNSPECIFIED ORGANISM Qualifiers: Pneumonia type: due to unspecified organism Laterality: left Lung location: upper lobe of lung Qualified Code(s): J18.1 - Lobar pneumonia, unspecified organism Comment/Plan: continue current antibiotics: Rocephin (3) Warfarin-induced coagulopathy Acute T45.511A - POISONING BY ANTICOAGULANTS, ACCIDENTAL, INIT; D68.9 - COAGULATION DEFECT, UNSPECIFIED Comment/Plan: Resumed warfarin, (gave Vit K x 1 dose). Follow INR daily. (4) Acute exacerbation of chronic obstructive airways disease Acute J44.1 - CHRONIC OBSTRUCTIVE PULMONARY DISEASE W (ACUTE) EXACERBATION Comment/Plan: Continue nebulized bronchodilators continue to wean IV steroids, still wheezing but moving air better. Continue mucolytics and aggressive pulmonary toileting. Patient is feeling better, tolerating lower dose of steroids (5) HTN (hypertension) Acute I10 - ESSENTIAL (PRIMARY) HYPERTENSION Qualifiers: Hypertension type: essential hypertension Qualified Code(s): I10 - Essential (primary) hypertension (6) GERD (gastroesophageal reflux disease) Chronic K21.9 - GASTRO-ESOPHAGEAL REFLUX DISEASE WITHOUT ESOPHAGITIS Qualifiers: Esophagitis presence: without esophagitis Qualified Code(s): K21.9 - Gastro -esophageal reflux disease without esophagitis Comment/Plan: continue PPI (7) H/O malignant neoplasm of esophagus Chronic Z85.01 - PERSONAL HISTORY OF MALIGNANT NEOPLASM OF ESOPHAGUS Comment /Plan: Status post treatment. Port in place. Followed by Heme-Onc.
[2016-07-16] MEDS: TEMAZEPAM 15 MG CAP PO PRN (21:41)
[2016-07-16] MEDS: hydrALAZINE 20 MG/ML VIAL IV PRN (21:41)
[2016-07-17] MEDS: NS 1,000 ML IV SCH ×2 (01:51→05:23)
[2016-07-17] MEDS: Albuterol/Ipratropium Neb 3 ML NEB NEB SCH ×2 (02:12→08:14)
[2016-07-17 04:56] LABS: PT-INR 1.4
[2016-07-17 05:33] VITALS: BMI 21.9
[2016-07-17] MEDS: REGULAR INSULIN 100 UNITS/ML - 3 ML VIAL SQ SCH ×2 (06:05→12:21)
[2016-07-17] MEDS: METHYLPREDNISOLONE 40 MG/1 ML VIAL IV SCH (06:06)
[2016-07-17] MEDS: PANTOPRAZOLE 40 MG TAB PO SCH (06:07)
[2016-07-17] MEDS: CEFTRIAXONE 1 GM in D5W 100 ML IV SCH (07:40)
[2016-07-17] MEDS: BUDESONIDE 0.5 MG NEB NEB SCH (08:19)
[2016-07-17] MEDS: LISINOPRIL 20 MG TAB PO SCH (08:49)
[2016-07-17] MEDS: GUAIFENESIN 600 MG LA TAB PO SCH (08:49)
--- NOTE | 2016-07-17 11:46 | PCM.DCS92 ---
- Final/Secondary Discharge Diagnosis (1) Acute respiratory failure with hypoxia Acute J96.01 - ACUTE RESPIRATORY FAILURE WITH HYPOXIA Present on Admission: Yes Comment: continue 2L O2 [place]. (2) Pneumonia Acute J18.9 - PNEUMONIA, UNSPECIFIED ORGANISM Present on Admission: Yes due to unspecified organism left upper lobe of lung J18.1 - Lobar pneumonia, unspecified organism Comment: Has completed antibiotics: has had 7 days of IV Rocephin - (3) Warfarin-induced coagulopathy Acute T45.511A - POISONING BY ANTICOAGULANTS, ACCIDENTAL, INIT; D68.9 - COAGULATION DEFECT, UNSPECIFIED Present on Admission: Yes Comment: Resumed warfarin, (gave Vit K x 1 dose). Repeat INR next week. (4) Acute exacerbation of chronic obstructive airways disease Acute J44.1 - CHRONIC OBSTRUCTIVE PULMONARY DISEASE W (ACUTE) EXACERBATION Present on Admission: Yes Comment: Continue nebulized bronchodilators, change to PO steroids, Patient is feeling better, tolerating lower dose of steroids. (5) HTN (hypertension) Acute I10 - ESSENTIAL (PRIMARY) HYPERTENSION Present on Admission: Yes essential hypertension I10 - Essential (primary) hypertension (6) GERD (gastroesophageal reflux disease) Chronic K21.9 - GASTRO-ESOPHAGEAL REFLUX DISEASE WITHOUT ESOPHAGITIS Present on Admission: Yes without esophagitis K21.9 - Gastro-esophageal reflux disease without esophagitis Comment: continue PPI (7) H/O malignant neoplasm of esophagus Chronic Z85.01 - PERSONAL HISTORY OF MALIGNANT NEOPLASM OF ESOPHAGUS Present on Admission: Yes Comment: Status post treatment. Port in place. Followed by Heme-Onc. Discharge Disposition: Discharge w/ Home Health Discharge Condition: Improved Cognitive Discharge Status: Unimpaired Fuctional Discharge Status: Walker Assistance Physician Follow up/Referrals: Ed Metz MD [Primary Care Provider] - 07/24/16 2:15 pm New Prescriptions: Albuterol/Ipratropium Neb [Duoneb] 3 ml NEB RTQ6 #120 nebu Guaifenesin [Mucinex] 1,200 mg PO Q12 #60 tablet.er Lisinopril [Zestril] 20 mg PO DAILY #30 tablet Pantoprazole Sodium [Protonix] 40 mg PO 0600 #30 tablet Prednisone [Sterapred Ds] 10 mg PO DIR #48 pack Discharge Home Medication List Fluticasone/Salmeterol [Advair] 1 puff INH DAILY 07/11/16 [History Confirmed 04/17 Last Taken 07/10/16 1 puff] Warfarin Sodium [Coumadin] 5 mg PO Q48H 07/11/16 [History Confirmed 07/11/16 Last Taken 1 Day Ago] Warfarin Sodium [Coumadin] 6 mg PO Q48H 07/11/16 [History Confirmed 07/11/16 Last Taken 2 Days Ago] Albuterol/Ipratropium Neb [Duoneb] 3 ml NEB RTQ6 #120 nebu 07/17/16 [Rx Last Taken Unknown] Guaifenesin [Mucinex] 1,200 mg PO Q12 #60 tablet.er 07/17/16 [Rx Last Taken Unknown] Lisinopril [Zestril] 20 mg PO DAILY #30 tablet 07/17/16 [Rx Last Taken Unknown] Pantoprazole Sodium [Protonix] 40 mg PO 0600 #30 tablet 07/17/16 [Rx Last Taken Unknown] Prednisone [Sterapred Ds] 10 mg PO DIR #48 pack 07/17/16 [Rx Last Taken Unknown] O2 Device: Nasal Cannula Oxygen Flow Rate: 2 Oxygen to be used after Discharge: Continuous Diet at Discharge: Cardiac, Low Salt Activity: As Tolerated Call Office For: Worsening Symptoms - DC Summary Notes Home Health Need / Snf Services:: Patient requires a skilled evaluation for rehabilitation services. To include gait training, transfer training and stair training. Instruction on use of assistive devices for ambulation on all surfaces. Instruct and upgrade home exercise program and therapeutic exercises to increase strength and endurance.Passive and active ROM exercises for strengthening. Recommend home adaptation to facilitate safety. Safety, pain and medication management. Due to the presence of Pulmonary Changes and/or risk of deterioration a skilled Assessment and observation of pulmonary status is required for this patient. This assessment could include but not limited to teaching, training of disease process and symptom management (diet, infection control, safety) and recognizing changes/decline in status. If appropriate to include education on oxygen use - safety, storage, reordering and need for a fire plan. Pulse Oximetry PRN for S/S respiratory distress. Hospital Course Note:: Discharge summary on patient named WINNIE GUERRA JR admitted to [facility] on 07/11/16 by Chung Stanton MD. Date of discharge is []. 56 yo MAN presented emergency room early on today for evaluation of progressive worsening difficulties breathing. Patient reports that about 10 days ago he has developed chest congestion and cough associated with the pleuritic chest pain it was seen by his PCP and received course of antibiotic. His symptoms have only minimally improved. Since finishing antibiotic he has developed progressive worsening dyspnea chest tightness wheezes and cough productive thick yellowish greenish phlegm denies any hemoptysis. Despite using his oxygen at higher flow patient did not sustain asymptomatic improvement and yesterday evening he has found himself gasping for air. His pulse ox was in the low 70s when EMS arrived.. Upon arrival in ED patient was found to be in severe respiratory distress hypoxic tachypneic tachycardic and hypertensive and required immediate ED staff attention and BiPAP therapy. He received IV steroids and nebulized bronchodilators, intubation was avoided. Medical consultation was phoned in for inpatient treatment. He was admitted for treatment of pneumonia, and COPD exacerbation. He was given supplemental oxygen, aggressive pulmonary toilet, and DuoNeb aerosol treatments. Blood cultures were obtained and the patient was started on IV Rocephin and azithromycin. He has completed 7 days of IV antibiotics now, and will not need antibiotics at discharge. He will be discharged home on a steroid taper. The patient will need oxygen at discharge. We will arrange for home health and physical therapy due to his debilitated condition. Code: 19837 (>30min.) - Physical Exam Vital Signs: Last Vital Signs Temp 98.1 F 07/17/16 09:00 Pulse 90 07/17/16 09:00 Resp 20 07/17/16 09:00 BP 125/89 07/17/16 09:00 Pulse Ox 96 07/17/16 09:00 Oxygen Pulse Oxygen Saturation 96 O2 Device Nasal Cannula Oxygen Flow Rate 2 Fraction of Inspired Oxygen ( 40 FIO2) Constitutional: No apparent distress, Alert Oriented to: Time, Person, Place - HEENT Head: Normal Eye: Normal Oropharynx: Normal Tympanic Membrane: Normal ENT EAC: Normal TMJ: Normal Nose: No Symptoms Reported - Respiratory/Cardiovascular Respiratory: Normal - CTA, Diminished Cardiovascular: Normal - GI Auscultation: Normal Palpation: Normal Tenderness: Non tender Rectal Exam: Deferred - Musculoskeletal Back: Normal Extremities: Normal - Integumentary Skin: Warm, Dry Lymphatics: Normal - Neurologic Memory Impaired: Normal Motor Function: Normal Cranial Nerve: Normal Cerebellar: Normal Mood Description: Normal, Anxious Thought: Coherent Perception: Normal
[2016-07-17 12:12] VITALS: BP 155/97; PULSE 92; TEMP 97.9
[2016-07-17] MEDS ORDERED: HEPARIN 500 UNITS/5 ML (100 UNITS/ML) SYR FLUSH ONE (13:00)
== END 2016-07-17 15:28 | disposition home health service (06) | DRG 189 ==
LOC: ED 03:50 → ICU 06:06 → PCU 20:20
PROVIDERS: ADMIT Internal Medicine; ATTEND Family Medicine
PROC: 5A09357 Assistance with Respiratory Ventilation, Less than 24 Consecutive Hours, Continuous Positive Airway Pressure (ICD-10-PCS; principal; 2016-07-11)
PROC: 039B3ZZ Drainage of Right Radial Artery, Percutaneous Approach (ICD-10-PCS; 2016-07-11)
DX: J96.01 Acute respiratory failure with hypoxia (principal); J18.1 Lobar pneumonia, unspecified organism; I27.82 Chronic pulmonary embolism; J44.0 Chronic obstructive pulmonary disease with (acute) lower respiratory infection; J44.1 Chronic obstructive pulmonary disease with (acute) exacerbation; I51.89 Other ill-defined heart diseases; I10 Essential (primary) hypertension; R79.1 Abnormal coagulation profile; F17.200 Nicotine dependence, unspecified, uncomplicated; T45.515A Adverse effect of anticoagulants, initial encounter; K21.9 Gastro-esophageal reflux disease without esophagitis; Z79.01 Long term (current) use of anticoagulants; E86.0 Dehydration; Z85.01 Personal history of malignant neoplasm of esophagus
CPT/HCPCS: 36415; 36600; 71010; 71020; 80048; 82803; 82962; 83735; 83880; 84132; 84484; 85025; 85027; 85610; 87040; 87086; 87641; 87804; 93005; 94640; 94660; 96372; 96374; 98960; 99285; G0237; J0360; J0456; J0696; J1642; J1650; J2060; J2920; J2930; J3490; J7060; J7070; J7620